=== PATIENT | male | born 1965 | race Caucasian/White ===

== ENCOUNTER 2023-09-15 09:08 | Outpatient (AMB) | payer OTHER, SELFPAY ==
--- NOTE | 2023-09-15 10:11 | HO.SPINEOV ---
Intake Visit Reasons: Degenerative disc disease cervical spine Assessment & Plan Assessment & Plan (1) Cervical radiculopathy: Code(s): M54.12 - Radiculopathy, cervical region Category: Medical Plan Dear colleague, Thank you for referring Brayan to our office today. He has a pleasant 58-year-old male who comes in today with a chief complaint of neck pain with radiation down his left upper extremity. He states that in mid June he was picking up a heavy been and felt a sharp pain in his neck. Over the course of the next 1-2 weeks he also developed shooting pains into his left upper extremity. When describing the radiation of his pain he runs his hand over the left shoulder into the left tricep been down the left elbow. He denies any hand/finger involvement. He denies any numbness/tingling/burning. He does report weakness associated with his pain and states he feels his left tricep has significantly reduced in size. He reports previously he could do 40-50 pushups and can only do about 10 now. He has had some difficulty with sleep and has trouble finding comfortable positions at night. He rates his pain at about a 5/10 constant with intermittent exacerbations. He has been attempting to utilize Tylenol/ibuprofen with only modest relief. He recently completed 6 weeks of physical therapy prompting his referral to our office. He has not as of yet attempted cortisone injections. PMH: Hypertension. Social hx: Patient does not smoke, reports no substance use. Medications: None. Allergies: NKDA. Physical exam: The patient has 4/5 strength in his left tricep. The rest of his strength is 5/5, including hand lead pharmacy technician and interossei. He denies any sensational changes. His reflexes are 3+ hyperactive diffusely. He ambulates well without any notable spastic gait. He rises from a seated position without difficulty. (-) clonus, (-) Will's, (-) Babinski. Imaging review: MRI of the cervical spine completed at [facility] shows a left-sided paracentral disc bulge at C5-6 causing moderate central canal and moderate left-sided foraminal stenosis at this level. There is also notable mild-moderate central canal stenosis at C6-7. I believe the radiology report accidentally reports C5-6 as C6-7, as the pathology seen does not match the report. No T2 signal change / myelomalacia noted. Impression: Brayan is a pleasant 58-year-old male who comes in today with a chief complaint acute onset neck pain with shooting pains into his left upper extremity. He does have signs of spinal cord impingement/foraminal stenosis on the left at C5-6 that could be causing his symptoms and radiculopathy. Given this, his MRI is not as convincing as his examination and testimony. I am most concerned with his disclosure of triceps weakness in the visualize difference incised between in his bilateral triceps. I would like to discuss this case with Dr. Viera and will call Brayan next week to follow-upregarding recommended interventions. We likely will discuss cortisone injections vs. ACDF at this level. Thank you for allowing us to care for your patient. The total time spent with this visit with this patient was 45 minutes reviewing history, physical exam, MRI imaging review, and implementation of treatment plan or further diagnostic testing Akira Viera MD,PhD [facility] Coding Level of Care Code New Pt Level 4 (41712) Diagnoses Cervical radiculopathy M54.12
== END 2023-09-15 10:11 | disposition home or self-care (01) ==
PROVIDERS: PCP Internal Medicine; Referring Provider Physician Assistant; Visit Provider Physician Assistant
DX: M54.12 Radiculopathy, cervical region (principal)
CPT/HCPCS: 99204

== ENCOUNTER → 2023-09-15 09:08 | Outpatient (BNVA) | payer OTHER, SELFPAY | PROVIDERS: PCP Internal Medicine; Visit Provider Physician Assistant ==

== ENCOUNTER 2023-10-04 07:55 | Outpatient (REF) | payer OTHER, SELFPAY ==
--- NOTE | 2023-10-04 08:00 | EMG_ITS ---
Left median and ulnar motor and sensory studies were performed. Left radial and median and lateral antecubital brachial sensory studies were performed and needle examination was performed. IMPRESSION: 1. Mild left ulnar neuropathy across cubital tunnel. 2. 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 3. Mild left mid cervical radiculopathy. MD CHRISTY Bradford/DORIAN / [phone]
== END 2023-10-04 07:56 | disposition home or self-care (01) ==
LOC: HO.NEURO 07:55
PROVIDERS: PCP Internal Medicine; Visit Provider Physician Assistant
DX: R53.1 Weakness (principal)
CPT/HCPCS: 95886; 95910

== ENCOUNTER → 2023-11-04 12:29 | Outpatient (BNVA) | payer OTHER, SELFPAY | PROVIDERS: PCP Internal Medicine; Visit Provider Neurological Surgery ==

== ENCOUNTER 2023-11-04 12:32 | Outpatient (AMB) | payer OTHER, SELFPAY ==
--- NOTE | 2023-11-04 13:04 | A.SPINEOV_ITS ---
Intake Visit Reasons: EMG f/u per Akira Intake Note: Mr. Ac is here today to F/u on the results to his EMG. Sec Accountant Required: No Assessment & Plan Assessment & Plan (1) Cervical radiculopathy: Code(s): M54.12 - Radiculopathy, cervical region Category: Medical Plan Dear colleague, On 11/04/2023 I saw for follow-up Brayan Ac. He is a 58-year-old male that developed left-sided neck pain radiating into his triceps region, elbow down to the dorsum of his left wrist. In addition he noticed atrophy of his triceps with weakness. An MRI shows C5-C6 disc osteophyte complex compressing the spinal cord and exiting C6 nerve root. Clinically he was mostly suffering from a C7 radiculopathy and therefore we ordered an EMG which comes back negative. Fortunately, the pain has significantly decreased and his triceps strength is subjectively improving. Therefore, I do not recommend surgery at this time. He will return to my clinic if the symptoms deteriorate or if the pain is not further improving. Thank you for allowing me take care of your patient. Mustapha Viera MD, PhD [facility] Trained Neurosurgeon Director, [facility] Coding Level of Care Code Est Pt Level 3 (69068) Diagnoses Cervical radiculopathy M54.12
== END 2023-11-04 13:18 | disposition home or self-care (01) ==
PROVIDERS: PCP Internal Medicine; Visit Provider Neurological Surgery
DX: M54.12 Radiculopathy, cervical region (principal)
CPT/HCPCS: 99213